=== PATIENT | female | born 1975 | race Two or more races ===

== ENCOUNTER 2017-08-30 10:21 | Outpatient (CLI) | payer OTHER | END 2017-08-30 10:34 | disposition home or self-care (01) | LOC: MAMO-SONO 10:21 | DX: Z12.31 Encounter for screening mammogram for malignant neoplasm of breast (principal); N60.29 Fibroadenosis of unspecified breast ==

== ENCOUNTER 2018-09-02 07:54 | Outpatient (CLI) | payer OTHER | END 2018-09-02 08:08 | disposition home or self-care (01) | LOC: MAMO-SONO 07:54 | DX: Z12.31 Encounter for screening mammogram for malignant neoplasm of breast (principal); N64.0 Fissure and fistula of nipple; N63.10 Unspecified lump in the right breast, unspecified quadrant; N63.20 Unspecified lump in the left breast, unspecified quadrant ==

== ENCOUNTER 2019-09-10 09:04 | Outpatient (CLI) | payer OTHER | END 2019-09-10 09:23 | disposition home or self-care (01) | LOC: MAMO-SONO 09:04 | DX: N64.0 Fissure and fistula of nipple (principal); N63.10 Unspecified lump in the right breast, unspecified quadrant; N63.20 Unspecified lump in the left breast, unspecified quadrant; Z12.31 Encounter for screening mammogram for malignant neoplasm of breast ==

== ENCOUNTER 2019-09-30 13:17 | Outpatient (CLI) | payer OTHER | END 2019-09-30 13:26 | disposition home or self-care (01) | LOC: MRI 13:17 | DX: D25.0 Submucous leiomyoma of uterus (principal); R10.2 Pelvic and perineal pain | CPT/HCPCS: 72195; 72197 ==

== ENCOUNTER 2020-06-18 12:27 | Outpatient (CLI) | payer OTHER | END 2020-06-18 12:36 | disposition home or self-care (01) | LOC: LAB 12:27 | PROVIDERS: ATTEND Obstetrics & Gynecology Obstetrics | DX: R97.1 Elevated cancer antigen 125 [CA 125] (principal); R10.2 Pelvic and perineal pain; N83.209 Unspecified ovarian cyst, unspecified side ==

== ENCOUNTER 2024-08-28 07:16 | Outpatient (CLI) | payer OTHER | END 2024-08-28 07:27 | disposition home or self-care (01) | LOC: MAMO-SONO 07:16 | PROVIDERS: ATTEND Obstetrics & Gynecology Obstetrics | DX: N63.11 Unspecified lump in the right breast, upper outer quadrant (principal) ==

== ENCOUNTER 2024-10-23 07:27 | Outpatient (CLI) | payer OTHER | END 2024-10-23 07:36 | disposition home or self-care (01) | LOC: MRI 07:27 | PROVIDERS: ATTEND Obstetrics & Gynecology Obstetrics | DX: D25.0 Submucous leiomyoma of uterus (principal) | CPT/HCPCS: 72197 ==

== ENCOUNTER 2025-01-06 07:31 | Outpatient (CLI) | payer OTHER | END 2025-01-06 07:43 | disposition home or self-care (01) | LOC: SONOGRAMA 07:31 | DX: D25.0 Submucous leiomyoma of uterus (principal) ==

== ENCOUNTER 2025-01-08 08:31 | Outpatient (CLI) | payer OTHER | END 2025-01-08 08:35 | disposition home or self-care (01) | LOC: SONOGRAMA 08:31 | PROVIDERS: ATTEND Internal Medicine Endocrinology, Diabetes & Metabolism | DX: E04.1 Nontoxic single thyroid nodule (principal) ==